=== PATIENT | male | born 2000 | race Caucasian/White ===

== ENCOUNTER 2024-01-05 06:28 | Day surgery (SDC) | payer OTHER, SELFPAY ==
[2024-01-05] MEDS ORDERED: Sodium Chloride 0.9% 100 ML ONE (07:50)
[2024-01-05] MEDS ORDERED: CEFAZOLIN 2 GM VIAL ONE (07:50)
[2024-01-05] MEDS ORDERED: Midazolam HCl 2 mg/2 ml Vial ONE (07:58)
[2024-01-05] MEDS ORDERED: EPINEPHrine 1 MG/ML VIAL ONE (07:58)
[2024-01-05] MEDS ORDERED: fentaNYL 50 mcg/mL 1 mL Vial ONE ×2 (07:58→09:12)
[2024-01-05] MEDS ORDERED: Bupivacaine PF 0.5% 30 ML VIAL ONE (07:58)
[2024-01-05] MEDS ORDERED: PROPOFOL 20 ML ONE (09:12)
[2024-01-05] MEDS ORDERED: Lidocaine 1% PF 5 ML VIAL ONE (09:12)
[2024-01-05] MEDS ORDERED: Ketorolac Tromethamine 30 MG (1 mL) VIAL ONE (09:15)
[2024-01-05] MEDS ORDERED: Dexamethasone 20 MG/5 ML VIAL ONE (10:31)
[2024-01-05] MEDS ORDERED: ePHEDrine Sulfate 50 MG/10 ML VIAL ONE (11:53)
[2024-01-05] MEDS ORDERED: Ondansetron PF 4 MG/2 ML Vial ONE (12:07)
== END 2024-01-05 13:52 | disposition home or self-care (01) ==
LOC: SDC 06:28
PROVIDERS: ATTEND Orthopaedic Surgery
PROC: 0PSQ04Z Reposition Left Metacarpal with Internal Fixation Device, Open Approach (ICD-10-PCS; principal; 2024-01-05)
PROC: 3E0T3BZ Introduction of Anesthetic Agent into Peripheral Nerves and Plexi, Percutaneous Approach (ICD-10-PCS; principal; 2024-01-05)
DX: S62.321A Displaced fracture of shaft of second metacarpal bone, left hand, initial encounter for closed fracture (principal); S62.323A Displaced fracture of shaft of third metacarpal bone, left hand, initial encounter for closed fracture; S62.325A Displaced fracture of shaft of fourth metacarpal bone, left hand, initial encounter for closed fracture; S62.327A Displaced fracture of shaft of fifth metacarpal bone, left hand, initial encounter for closed fracture; X58.XXXA Exposure to other specified factors, initial encounter; Z88.1 Allergy status to other antibiotic agents; Z79.899 Other long term (current) drug therapy; Z98.890 Other specified postprocedural states
CPT/HCPCS: J0171; J0665; J1100; J1885; J2250; J2405; J2704; J3010